=== PATIENT | female | born 1965 ===

== ENCOUNTER 2025-06-30 01:28 | Outpatient (CLI) | payer OTHER, SELFPAY ==
--- NOTE | 2025-06-30 08:40 | DI.RAD_ITS ---
Exam(s) XR THUMB LT EXAM: XR THUMB LT EXAM DATE/TIME: CLINICAL HISTORY: PAIN LT THUMB,M79.645. TECHNIQUE: 2D digital imaging was performed of the left finger. Four views were obtained. PA/AP, oblique, and lateral views were obtained. COMPARISON: None. FINDINGS: BONES: No acute fracture is present. No bony destructive lesion is seen. JOINTS: No dislocation is present. There are moderate degenerative changes seen in the wrist particularly at the 1st CMC joint. There are mild degenerative changes seen at the interphalangeal joint of the thumb. SOFT TISSUE: There is a well corticated osseous density adjacent to the 1st CMC joint which appears old. IMPRESSION: Degenerative changes seen in the thumb. 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 DATA REPOSITORY: RADIATION DOSE DELIVERED:
== END 2025-06-30 01:48 ==
PROVIDERS: Visit Provider Nurse Practitioner Family
DX: M79.645 Pain in left finger(s) (principal)
CPT/HCPCS: 73140